=== PATIENT | female | born 1980 | race African-American/Black ===

== ENCOUNTER 2021-01-27 17:06 | Emergency (ER) | payer OTHER ==
[~2021-01-27] VITALS: Ht 195.6 cm; Wt 73.0 kg
[2021-01-27 18:03] VITALS: BP 140/88
--- NOTE | 2021-01-27 19:10 | PHYS DOC ---
Past History Past Surgical History: Oophorectomy (NATALIIA SHERIFF APRN) Alcohol Use: None (NATALIIA SHERIFF APRN) General Adult EDM: Chief Complaint: OTHER COMPLAINTS HPI: HPI: Patient is a 40-year-old female who presents with positive test and cramping. Patient states "I had a tubal ligation in 2009 and I am about 39 days late on my.". LMP was 12/20. Patient reports she has taken to test which have both been positive. Patient denies any spotting. Patient reports mild cramping in her lower abdomen along with some mild nausea. Denies dysuria or frequency. Denies abnormal vaginal discharge. Patient denies medical history. (NATALIIA SHERIFF APRN) Review of Systems: Review of Systems: Constitutional: Denies fever or chills Eyes: Denies change in visual acuity HENT: Denies nasal congestion or sore throat Respiratory: Denies cough or shortness of breath Cardiovascular: Denies chest pain or edema GI: Reports abdominal cramping and nausea : Denies dysuria Musculoskeletal: Denies back pain or joint pain Integument: Denies rash Neurologic: Denies headache, focal weakness or sensory changes Endocrine: Denies polyuria or polydipsia Lymphatic: Denies swollen glands Psychiatric: Denies depression or anxiety (NATALIIA SHERIFF APRN) Allergies: Allergies: Allergies Coded Allergies Type Severity Reaction Last Updated Verified No Known Drug Allergies 01/27/21 No (NATALIIA SHERIFF APRN) Physical Exam: PE: Constitutional: Well developed, well nourished, no acute distress, non-toxic appearance. [] HENT: Normocephalic, atraumatic, bilateral external ears normal, oropharynx moist, no oral exudates, nose normal. [] Eyes: PERRLA, EOMI, conjunctiva normal, no discharge. [] Neck: Normal range of motion, no tenderness, supple, no stridor. [] Cardiovascular:Heart rate regular rhythm, no murmur [] Lungs & Thorax: Bilateral breath sounds clear to auscultation [] Abdomen: Bowel sounds normal, soft, no tenderness, no masses, no pulsatile kaylyn s. [] Skin: Warm, dry, no erythema, no rash. [] Back: No tenderness, no CVA tenderness. [] Extremities: No tenderness, no cyanosis, no clubbing, ROM intact, no edema. [] Neurologic: Alert and oriented X 3, normal motor function, normal sensory function, no focal deficits noted. [] Psychologic: Affect normal, judgement normal, mood normal. [] (NATALIIA SHERIFF APRN) Current Patient Data: Vital Signs: Vital Signs Date Time Temp Pulse Resp B/P (MAP) Pulse Ox O2 Delivery O2 Flow Rate FiO2 01/27/21 18:03 98.7 88 15 140/88 100 Room Air (NATALIIA SHERIFF APRN) EKG: EKG: [] (NATALIIA SHERIFF APRN) Radiology/Procedures: Radiology/Procedures: [] (NATALIIA SHERIFF APRN) Heart Score: C/O Chest Pain: No Risk Factors: Risk Factors: DM, Current or recent (<one month) smoker, HTN, HLP, family history of CAD, obesity. Risk Scores: Score 0 - 3: 2.5% MACE over next 6 weeks - Discharge Home Score 4 - 6: 20.3% MACE over next 6 weeks - Admit for Clinical Observation Score 7 - 10: 72.7% MACE over next 6 weeks - Early Invasive Strategies (NATALIIA SHERIFF APRN) Course & Med Decision Making: Course & Med Decision Making Pertinent Labs and Imaging studies reviewed. (See chart for details) [] Patient is a 40-year-old female presents with a positive test and lower abdominal cramping. Last menstrual period was 12/20. Patient reports she is taking 2 tests which were both positive. Patient had a tubal ligation in 2009. UA and test ordered. Discussed negative test results with patient. Patient was still adamant that she wanted a blood test. Quant level ordered. Level came back as 3. Explained to patient that she would need to follow-up with [facility] or return to the emergency room and 48 to 72 hours to have recheck of quant levels.. Patient given strict return precautions for increasing pain, bleeding. Patient states that she understands discharge instructions and will follow up with her physician. Patient is hemodynamically stable upon discharge. Denying pain at this time. (NATALIIA SHERIFF APRN) Dragon Disclaimer: Dragon Disclaimer: This electronic medical record was generated, in whole or in part, using a voice recognition dictation system. (NATALIIA SHERIFF APRN) Departure Departure: Impression: Primary Impression: examination or test, negative result Disposition: HOME / SELF CARE / HOMELESS Condition: STABLE Referrals: BETTY ROBLES DO (PCP) Additional Instructions: You were seen in the emergency room for test. test in the emergency room was negative. You requested a blood test to be drawn. You will need to return to emergency room in 48 to 72 hours or follow-up with your PCP to have another quant level. You will need to follow-up with your [facility] or primary care physician for further management. You need to return to the emergency room if you have an increase in abdominal pain, nausea and vomiting, vaginal bleeding. EMERGENCY DEPARTMENT GENERAL DISCHARGE INSTRUCTIONS Thank you for coming to [facility] (ED) today and trusting us with you care. We trust that you had a positivie experience in our Emergency Department. If you wish to speak to the department management, you may call the director at [phone]. YOUR FOLLOW UP INSTRUCTIONS ARE FOLLOWS: 1. Do you have a private Doctor? If you do not have a private doctor, please ask for a resource list of physicians or clinics that may be able to assist you with follow up care. 2. The Emergency Physician has interpreted your x-rays. The X-Ray specialist will also review them. If there is a change in the findings, you will be notified in 48 hours when at all possible. 3. A lab test or culture has been done, your results will be reviewed and you will be notified if you need a change in treatment. ADDITIONAL INSTRUCTIONS AND INFORMATION: 1. Your care today has been supervised by a physician who is specially trained in emergency care. Many problems require more than one evaluation for a complete diagnosis and treatment. We recommend that you schedule your follow up appointment as recommended to ensure complete treatment of you illness or injury. If you are unable to obtain follow up care and continue to have a problem, or if your condition worsens, we recommend that you return to the ED. 2. We are not able to safely determine your condition over the phone nor are we able to give sound medical advice over the phone. For these safety reasons, if you call for medical advice we will ask you to come to the ED for further evaluation. 3. If you have any questions regarding these discharge instructions please call the ED at [phone]. SAFETY INFORMATION: In the interest of safety, wellness, and injury prevention; we encourage you to wear your sealbelt, if you smoke; quite smoking, and we encourage family to use a protective helmet for bicycling and other sporting events that present an increased risk for head injury. IF YOUR SYMPTOMS WORSEN OR NEW SYMPTOMS DEVELOP, OR YOU HAVE CONCERNS ABOUT YOUR CONDITION; OR IF YOUR CONDITION WORSENS WHILE YOU ARE WAITING FOR YOUR FOLLOW UP APPOINTMENT; EITHER CONTACT YOUR PRIMARY CARE DOCTOR, THE PHYSICIAN WHOSE NAME AND NUMBER YOU WERE GIVEN, OR RETURN TO THE ED IMMEDIATELY. Attending Signature Attending Signature I have participated in the care of this patient and I have reviewed and agree with all pertinent clinical information above including history, exam, and recommendations. (JERRY FELDMAN MD) NATALIIA SHERIFF APRN Jan 27, 2021 19:10 JERRY FELDMAN MD Jan 30, 2021 07:01
[2021-01-27 19:40] LABS: BILIRUBIN,URINE NEG (NEG); CLARITY,URINE CLEAR; COLOR,URINE YELLOW; GLUCOSE,URINE NEG (NEG); NITRITE,URINE NEG (NEG); UROBILINOGEN,URINE 0.2 mg/dL (0.2 mg/dL)
[2021-01-27 19:43] LABS: BACTERIA,URINE FEW /HPF (0-FEW); SQUAMOUS EPITHELIAL CELL,UR MANY /LPF
== END 2021-01-27 21:10 | disposition home or self-care (01) ==
LOC: ER 17:06
DX: Z32.02 Encounter for pregnancy test, result negative (principal)
CPT/HCPCS: 36415; 81001; 81025; 84702; 99283